=== PATIENT | female | born 1980 | race African-American/Black ===

== ENCOUNTER 2016-09-11 10:39 | Emergency (ER) | payer MEDICARE, MEDICAID ==
--- NOTE | 2016-09-11 10:50 | ER Document Report ---
ED Medical Screen (RME) - General Stated Complaint: ABDOMINAL PAIN Mode of Arrival: Ambulatory Information source: Patient Notes: She presents to the emergency department with complaints of lower abdominal pain that started last night. She reports is not as bad as last night but still hurts. Patient reports some diarrhea this morning felt nausea no vomiting possible fever. Abdomen soft complaints of tenderness to the left lower quadrant. Declines antinausea medication. I have greeted and performed a rapid initial assessment of this patient. A comprehensive ED assessment and evaluation of the patient, analysis of test results and completion of the medical decision making process will be conducted by additional ED providers. - Related Data Allergies/Adverse Reactions: Sulfa (Sulfonamide Antibiotics) Allergy (Verified 09/11/16 10:48)
[2016-09-11 11:18] LABS: HEMATOCRIT 36.6 % (36.0-47.0); HEMOGLOBIN 12.2 g/dL (12.0-15.5); MEAN CORPUSCULAR HEMOGLOBIN 26.6 pg (27.0-33.4); MEAN CORPUSCULAR HGB CONC 33.4 g/dL (32.0-36.0); MEAN CORPUSCULAR VOLUME 80 fl (80-97); RED CELL DISTRIBUTION WIDTH 16.7 % (11.5-14.0); WHITE BLOOD COUNT 7.1 10^3/uL (4.0-10.5)
[2016-09-11 11:23] LABS: APPEARANCE,URINE SLIGHTLY-CLOUDY; BILIRUBIN,URINE NEGATIVE (NEGATIVE); GLUCOSE, URINE NEGATIVE (NEGATIVE); KETONES,URINE NEGATIVE (NEGATIVE); LEUKOCYTE ESTERASE,URINE NEGATIVE (NEGATIVE); NITRITE,URINE NEGATIVE (NEGATIVE); PROTEIN,URINE NEGATIVE (NEGATIVE); URINE SPECIFIC GRAVITY 1.024; UROBILINOGEN,URINE NEGATIVE mg/dL (<2.0)
[2016-09-11 11:36] LABS: ALANINE AMINOTRANSFERASE 27 U/L (9-52); ALBUMIN 4.3 g/dL (3.5-5.0); ALKALINE PHOSPHATASE 55 U/L (38-126); ANION GAP 10 (5-19); ASPARTATE AMINO TRANSFERASE 24 U/L (14-36); BILIRUBIN,TOTAL 0.8 mg/dL (0.2-1.3); BLOOD UREA NITROGEN 14 mg/dL (7-20); CARBON DIOXIDE 26 mmol/L (22-30); CHLORIDE 102 mmol/L (98-107); CREATININE RESULT 0.58 mg/dL (0.52-1.25); GLUCOSE 107 mg/dL (75-110); POTASSIUM 3.9 mmol/L (3.6-5.0); SODIUM 138.4 mmol/L (137-145); TOTAL PROTEIN 7.3 g/dL (6.3-8.2)
[2016-09-11 11:43] LABS: BAND NEUTROPHILS % (MANUAL) 5 % (3-5); BASOPHILS % (MANUAL) 0 % (0-2); EOSINOPHILS % (MANUAL) 1 % (0-6); LYMPHOCYTES % (MANUAL) 6 % (13-45); TOTAL CELLS COUNTED 100
[2016-09-11 11:45] LABS: HYPOCHROMASIA 1+; MICROCYTOSIS SLIGHT; POIKILOCYTOSIS SLIGHT; TARGET CELLS SLIGHT
[2016-09-11] MEDS ORDERED: ONDANSETRON ODT 4 MG TAB (6 TAB/DSPK) PO PRN (12:51)
--- NOTE | 2016-09-11 12:57 | ER Document Report ---
ED General - General Chief Complaint: Abdominal Pain Stated Complaint: ABDOMINAL PAIN Mode of Arrival: Ambulatory TRAVEL OUTSIDE OF THE U.S. IN LAST 30 DAYS: No - HPI Patient complains to provider of: diffuse abdominal pain nausea myalgias Notes: Patient coming in for a diffuse abdominal pain myalgias nausea ongoing for the last 24 hours. Patient states that she did not receive a flu vaccine this year denies any recent travel or sick contacts denies any diarrhea vomiting fevers chills. Patient denies any recent trauma or antibiotic usage. Patient is resting currently upon my evaluation - Related Data Allergies/Adverse Reactions: Sulfa (Sulfonamide Antibiotics) Allergy (Verified 09/11/16 10:48) Past Medical History - General Information source: Patient - Social History Smoking Status: Never Smoker Chew tobacco use (# tins/day): No Frequency of alcohol use: Occasional Drug Abuse: None Family History: Reviewed & Not Pertinent Patient has suicidal ideation: No Patient has homicidal ideation: No Renal/ Medical History: Denies: Hx Peritoneal Dialysis Review of Systems - Review of Systems Constitutional: No symptoms reported EENT: No symptoms reported Cardiovascular: No symptoms reported Respiratory: No symptoms reported Gastrointestinal: Nausea, Vomiting Genitourinary: No symptoms reported Female Genitourinary: No symptoms reported Musculoskeletal: No symptoms reported Skin: No symptoms reported Hematologic/Lymphatic: No symptoms reported Neurological/Psychological: No symptoms reported -: Yes All other systems reviewed and negative Physical Exam - Vital signs Vitals: Temp Pulse Resp BP Pulse Ox 98.8 F 96 16 118/81 95 09/11/16 10:48 09/11/16 10:48 09/11/16 10:48 09/11/16 10:48 09/11/16 10:48 Interpretation: Normal - General General appearance: Appears well, Alert - HEENT Head: Normocephalic, Atraumatic Eyes: Normal Pupils: PERRL - Respiratory Respiratory status: No respiratory distress Chest status: Nontender Breath sounds: Normal Chest palpation: Normal - Cardiovascular Rhythm: Regular Heart sounds: Normal auscultation Murmur: No - Abdominal Inspection: Normal Distension: No distension Bowel sounds: Normal Tenderness: Nontender. No: Tender, McBurney's point, Zuniga's sign, Guarding, Rebound Organomegaly: No organomegaly - Back Back: Normal, Nontender - Extremities General upper extremity: Normal inspection, Nontender, Normal color, Normal ROM , Normal temperature General lower extremity: Normal inspection, Nontender, Normal color, Normal ROM , Normal temperature, Normal weight bearing. No: Tito's sign - Neurological Neuro grossly intact: Yes Cognition: Normal Orientation: AAOx4 [place] Coma Scale Eye Opening: Spontaneous [place] Coma Scale Verbal: Oriented [place] Coma Scale Motor: Obeys Commands [place] Coma Scale Total: 15 Speech: Normal Motor strength normal: LUE, RUE, LLE, RLE Sensory: Normal - Psychological Associated symptoms: Normal affect, Normal mood - Skin Skin Temperature: Warm Skin Moisture: Dry Skin Color: Normal Course - Re-evaluation Re-evalutation: 09/11/16 15:20 : The patient presents with abdominal pain without signs of peritonitis or other life-threatening or serious etiology. The patient appears stable for discharge and has been instructed to return immediately if the symptoms worsen in any way, or in 8-12hr if not improved for re-evaluation. The patient has been instructed to return if the symptoms worsen or change in any way.. - Vital Signs Vital signs: Temp Pulse Resp BP Pulse Ox 99.0 F 79 16 139/89 H 100 09/11/16 13:14 09/11/16 13:14 09/11/16 13:14 09/11/16 13:14 09/11/16 13:14 - Laboratory Result Diagrams: 09/11/16 10:55 09/11/16 10:55 Laboratory results interpreted by me: 09/11/16 10:55 MCH 26.6 L RDW 16.7 H Seg Neuts % (Manual) 86 H Lymphocytes % (Manual) 6 L Monocytes % (Manual) 2 L Abs Lymphs (Manual) 0.4 L Discharge - Discharge Clinical Impression: Nausea, Viral syndrome Abdominal pain Qualifiers: Abdominal location: unspecified location Qualified Code(s): R10.9 - Unspecified abdominal pain Condition: Good Disposition: HOME, SELF-CARE Instructions: Abdominal Pain ([facility]), Antinausea Medication ([facility]), Viral Syndrome ([facility]) Additional Instructions: Take medications as prescribed. Your laboratory evaluation and physical examination is consistent with a viral syndrome. He may experience symptoms for the next 3-6 days. Follow-up with your primary care physician please drink plenty water and fluids to stay hydrated. Please take Tylenol Motrin for your pain and possible fevers Prescriptions: Ondansetron [Zofran Odt 4 mg Tablet] 1 - 2 tab PO Q4H PRN #30 tab.rapdis PRN Reason: For Nausea/Vomiting Promethazine HCl [Phenergan 25 mg Tablet] 1 - 2 tab PO Q6H PRN #30 tablet PRN Reason:
[2016-09-11 13:15] VITALS: BP 139/89
== END 2016-09-11 13:16 | disposition home or self-care (01) ==
LOC: ER 10:39
DX: R11.0 Nausea (principal); B34.9 Viral infection, unspecified; R10.9 Unspecified abdominal pain; M79.1 Myalgia; Z88.2 Allergy status to sulfonamides
CPT/HCPCS: 99284; 36415; 83690; 84703; 85025; 80053; 81001; A9270

== ENCOUNTER 2016-12-20 01:49 | Emergency (ER) | payer MEDICARE, MEDICAID, OTHER | END 2016-12-20 02:10 | disposition left against medical advice (07) | LOC: ER 01:49 | DX: Z53.21 Procedure and treatment not carried out due to patient leaving prior to being seen by health care provider (principal) ==

== ENCOUNTER 2017-01-11 16:50 | Emergency (ER) | payer MEDICARE, OTHER, MEDICAID ==
--- NOTE | 2017-01-11 17:28 | ER Document Report ---
ED General - General Chief Complaint: Psych Problem Stated Complaint: PSYCH EVAL Time Seen by Provider: 01/11/17 17:07 Mode of Arrival: Ambulatory Information source: Patient Notes: 36-year-old female history of depression but has not been on medication for the past year presents with complaints of depression and suicidal ideation. Patient notes she had thoughts of hurting herself 3 days ago but those thoughts have since resolved. Patient denies actual plan to harm herself. TRAVEL OUTSIDE OF THE [place] IN LAST 30 DAYS: No - HPI Onset: Other Onset/Duration: Persistent Quality of pain: No pain Severity: Mild Pain Level: Denies Associated symptoms: Other Exacerbated by: Denies Relieved by: Denies Similar symptoms previously: Yes Recently seen / treated by doctor: Yes - Related Data Allergies/Adverse Reactions: Sulfa (Sulfonamide Antibiotics) Allergy (Verified 01/11/17 17:57) Past Medical History - Social History Smoking Status: Never Smoker Cigarette use (# per day): No Chew tobacco use (# tins/day): No Smoking Education Provided: No Family History: Reviewed & Not Pertinent Patient has suicidal ideation: Yes Patient has homicidal ideation: No Renal/ Medical History: Denies: Hx Peritoneal Dialysis Review of Systems - Review of Systems Notes: REVIEW OF SYSTEMS: CONSTITUTIONAL : Denies fever, chills, or sweats. Denies recent illness. EENT: Denies eye, ear, throat, or mouth pain or symptoms. Denies nasal or sinus congestion or discharge. Denies throat, tongue, or mouth swelling or difficulty swallowing. CARDIOVASCULAR: Denies chest pain. Denies palpitations or racing or irregular heart beat. Denies ankle edema. RESPIRATORY: Denies cough, cold, or chest congestion. Denies shortness of breath, difficulty breathing, or wheezing. GASTROINTESTINAL: Denies abdominal pain or distention. Denies nausea, vomiting , or diarrhea. Denies blood in vomitus, stools, or per rectum. Denies black, tarry stools. Denies constipation. GENITOURINARY: Denies difficulty urinating, painful urination, burning, frequency, blood in urine, or discharge. FEMALE GENITOURINARY: Denies vaginal bleeding, heavy or abnormal periods, irregular periods. Denies vaginal discharge or odor. MUSCULOSKELETAL: Denies back or neck pain or stiffness. Denies joint pain or swelling. SKIN: Denies rash, lesions or sores. HEMATOLOGIC : Denies easy bruising or bleeding. LYMPHATIC: Denies swollen, enlarged glands. NEUROLOGICAL: Denies confusion or altered mental status. Denies passing out or loss of consciousness. Denies dizziness or lightheadedness. Denies headache. Denies weakness or paralysis or loss of use of either side. Denies problems with gait or speech. Denies sensory loss, numbness, or tingling. Denies seizures. PSYCHIATRIC: depression ALL OTHER SYSTEMS REVIEWED AND NEGATIVE. PHYSICAL EXAMINATION: GENERAL: Well-appearing, well-nourished and in no acute distress. HEAD: Atraumatic, normocephalic. EYES: Pupils equal round and reactive to light, extraocular movements intact, conjunctiva are normal. ENT: Nares patent, oropharynx clear without exudates. Moist mucous membranes. NECK: Normal range of motion, supple without lymphadenopathy LUNGS: Breath sounds clear to auscultation bilaterally and equal. No wheezes rales or rhonchi. HEART: Regular rate and rhythm without murmurs ABDOMEN: Soft, nontender, nondistended abdomen. No guarding, no rebound. No masses appreciated. Female : deferred Musculoskeletal: Normal range of motion, no pitting or edema. No cyanosis. NEUROLOGICAL: Cranial nerves grossly intact. Normal speech, normal gait. Normal sensory, motor exams PSYCH: denies suicidal ideation SKIN: Warm, Dry, normal turgor, no rashes or lesions noted. Dictation was performed using [employer] voice recognition software Physical Exam - Vital signs Vitals: Temp Pulse Resp BP Pulse Ox 98.9 F 87 14 143/97 H 100 01/11/17 16:56 01/11/17 16:56 01/11/17 16:56 01/11/17 16:56 01/11/17 16:56 Course - Re-evaluation Re-evalutation: 01/11/17 17:59 Patient at this time has no obvious suicidal ideations, she looks well is in no distress. I will have mental health evaluate the patient and determine plan, patient wishes to have outpatient treatment and I believe this is appropriate After performing a Medical Screening Examination, I estimate there is LOW risk for any life threatening mental health issues. At this time the patient looks extremely well and has not attempted severe self harm. I have reevaluated this patient multiple times and no significant life threatening changes are noted. The patient and I have discussed the diagnosis and risks, and we agree with discharging home with close follow-up with the understanding that symptoms and presentations can change. We also discussed returning to the Emergency Department immediately if new or worsening symptoms occur. We have discussed the symptoms which are most concerning (hallucinations, thoughts or actions of self harm or harm to others) that necessitate immediate return. - Vital Signs Vital signs: Temp Pulse Resp BP Pulse Ox 98.9 F 87 14 143/97 H 100 01/11/17 16:56 01/11/17 16:56 01/11/17 16:56 01/11/17 16:56 01/11/17 16:56 - Diagnostic Test Radiology reviewed: Image reviewed, Reports reviewed - EKG Interpretation by Me EKG shows normal: Sinus rhythm, [place], Intervals, QRS Complexes Discharge - Discharge Clinical Impression: Passive suicidal ideations Depressed Qualifiers: Depression Type: unspecified Qualified Code(s): F32.9 - Major depressive disorder, single episode, unspecified Condition: Fair Disposition: HOME, SELF-CARE Additional Instructions: DEPRESSION: Your evaluation reveals that you have mental depression. While symptoms may be vague, they often include disturbance of sleep, fatigue, loss of appetite , and general loss of interest in life. While depression may be a side effect of drugs, or a reaction to a major change in your life, many cases have no known cause. If depression is acute, and related to a major loss in your life, you can expect it to clear completely with time. If you have been depressed a long time , are prone to repeated bouts of depression or low mood, or have been thinking of suicide, get help. Depression can be treated with anti-depressant medication and counselling. Long-term depression will often take a few weeks to clear, even with appropriate medication. Follow-up care is important. SUICIDAL IDEATION: Suicidal ideation is a common medical term for thoughts about suicide, which may be as detailed as a formulated plan, without the suicidal act itself. Although most people who undergo suicidal ideation do not commit suicide, some go on to make suicide attempts. The range of suicidal ideation varies greatly from fleeting to detailed planning, role playing, and unsuccessful attempts. While thoughts about suicide are common, most people do not carry out serious actions to commit suicide. Based upon your evaluation and discussion with you, we do not believe you are currently at risk to act upon your thoughts of suicide. You have agreed to return to the Emergency Department, at any time , if you feel inclined to act upon your suicidal thoughts. You should follow up with A, [facility], or [facility] as a walk-in first thing tomorrow (01/12/2017) morning. They all open at 0800. Referrals: [facility] [Outside] - Follow up tomorrow [facility] [Outside] - Follow up tomorrow () [facility] [Outside] - Follow up tomorrow
--- NOTE | 2017-01-11 17:58 | ER Document Report ---
ED Psych Disorder / Suicide - General Mode of Arrival: Ambulatory Information source: Patient TRAVEL OUTSIDE OF THE [place] IN LAST 30 DAYS: No - HPI Patient complains to provider of: Suicidal ideation Onset: Other - couple days ago Onset was: Gradual Suicide Risk Factors: Bipolar, Depressed Situational problems related to: Recent divorce, Work Normal mood: No Associated symptoms: Depressed, Tearful - eyes were watery however never cried Similar symptoms previously: Yes Recently seen / treated by doctor: Yes <MELISSA CERNA - Last Filed: 01/11/17 18:08> <SHRAVAN BROWN - Last Filed: 01/14/17 11:09> - General Chief Complaint: Psych Problem Stated Complaint: Suicidal Ideation, Increased Depression Time Seen by Provider: 01/11/17 17:07 - HPI Notes: Patient is a 36 year old female who presented to the ED today for SI, seeking medications, and wanting outpatient resources. She brought herself to the ED. She reported she moved from [place] to [place] about 6 months ago. She noted her family is in [place]. She identified she recently went through a divorce, is residing in the home with her ex- still, there are issues surrounding the children, financial issues, she is not working, and she is trying to obtain other housing. She stated she has [place] Medicaid and disability. She noted she had had outpatient MH services when in [place] but none since moving to [place]. She stated she had previously been prescribed Latuda which was helpful and Seroquel which did not seem effective. She acknowledged previous inpatient hospitalization, the most recent being 9 months to a year ago in [place], where she spent 1-2 weeks. She denied current SI. She admitted to having SI a couple days ago, went to the store, was thinking about what pills she could take , and then thought "that would be stupid to take pills and not ." She stated the best way would be to get a gun. She reported she does not have a gun or have access. She denied previous SI attempts and said "I think I would be successful if I tried." She denied HI. She refused providing a collateral. She stated she would not utilize mobile crisis, however if overwhelmed would come back to the ED. She was unsure about family MH history due to being adopted. Patient was alert and oriented. Mood was depressed with congruent affect AEB watery eyes when talking about her social stresses. She denied current SI/HI, previous attempts, and admitted to SI thoughts a couple days ago. She did not appear to be responding to internal stimuli AEB fair eye contact, answering questions appropriately when addressed, and carrying on dialogue conversation. Thought processes were organized and linear. Conversational speech was soft in tone and WNL for rate and prosody. Intellectual abilities are estimated to be average. Insight, judgment and impulse control are fair AEB coming to the ED to seek guidance and referral information. Diagnosis: V61.03 (Z63.5) Disruption of Family by Divorce 296.80 (F31.9) Unspecified Bipolar and Related Disorder by History Impression/Plan: Recommendation to discharge patient home. She does not meet [place] [address] [address] IVC criteria. She denied current SI/HI, came seeking resources ( shows hope), and there was no observed psychosis. She will be provided with scripts for medication. Provided patient with outpatient resource list with emphasis on A, [facility], and [facility] since they do walk-ins M-F from [phone] (this was documented on the resource list). Encouraged her to go to one first thing tomorrow morning. She agreed to come back to the ED if she was overwhelmed and/or SI returned. Consulted with Dr. Brown regarding the management and care of patient. ED Doctor in agreement with recommendations. (MELISSA CERNA) - Related Data Allergies/Adverse Reactions: Sulfa (Sulfonamide Antibiotics) Allergy (Verified 01/11/17 17:57) Past Medical History - Social History Family History: Reviewed & Not Pertinent Patient has suicidal ideation: Yes Patient has homicidal ideation: No Renal/ Medical History: Denies: Hx Peritoneal Dialysis <MELISSA CERNA - Last Filed: 01/11/17 18:08> - Social History Smoking Status: Unknown if Ever Smoked <SHRAVAN BROWN - Last Filed: 01/14/17 11:09> Discharge <MELISSA CERNA - Last Filed: 01/11/17 18:08> <SHRAVAN BROWN - Last Filed: 01/14/17 11:09> - Discharge Clinical Impression: Passive suicidal ideations, Bipolar disorder Depressed Qualifiers: Depression Type: unspecified Qualified Code(s): F32.9 - Major depressive disorder, single episode, unspecified Condition: Fair Disposition: HOME, SELF-CARE Additional Instructions: DEPRESSION: Your evaluation reveals that you have mental depression. While symptoms may be vague, they often include disturbance of sleep, fatigue, loss of appetite , and general loss of interest in life. While depression may be a side effect of drugs, or a reaction to a major change in your life, many cases have no known cause. If depression is acute, and related to a major loss in your life, you can expect it to clear completely with time. If you have been depressed a long time , are prone to repeated bouts of depression or low mood, or have been thinking of suicide, get help. Depression can be treated with anti-depressant medication and counselling. Long-term depression will often take a few weeks to clear, even with appropriate medication. Follow-up care is important. SUICIDAL IDEATION: Suicidal ideation is a common medical term for thoughts about suicide, which may be as detailed as a formulated plan, without the suicidal act itself. Although most people who undergo suicidal ideation do not commit suicide, some go on to make suicide attempts. The range of suicidal ideation varies greatly from fleeting to detailed planning, role playing, and unsuccessful attempts. While thoughts about suicide are common, most people do not carry out serious actions to commit suicide. Based upon your evaluation and discussion with you, we do not believe you are currently at risk to act upon your thoughts of suicide. You have agreed to return to the Emergency Department, at any time , if you feel inclined to act upon your suicidal thoughts. You should follow up with [facility], [facility], or [facility] as a walk-in first thing tomorrow (01/12/2017) morning. They all open at 0800. Prescriptions: Buspirone HCl [Buspar 10 mg Tablet] 10 mg PO QHS #30 tablet Buspirone HCl [Buspar 5 mg Tablet] 1 tab PO QAM #30 tab Divalproex Sodium [Depakote] 500 mg PO BID #60 tablet. Referrals: [facility] [Outside] - Follow up tomorrow [facility] [Outside] - Follow up tomorrow [facility] [Outside] - Follow up tomorrow ()
[2017-01-11 18:35] VITALS: BP 119/80
== END 2017-01-11 18:35 | disposition home or self-care (01) ==
LOC: ER 16:50
DX: F32.9 Major depressive disorder, single episode, unspecified (principal); R45.851 Suicidal ideations; Z88.2 Allergy status to sulfonamides
CPT/HCPCS: 99285

== ENCOUNTER 2018-03-08 11:47 | Emergency (ER) | payer MEDICARE, MEDICAID ==
[2018-03-08 13:08] LABS: ABSOLUTE BASOPHILS # (AUTO) 0.1 10^3/uL (0.0-0.2); ABSOLUTE LYMPHOCYTES (AUTO) 0.3 10^3/uL (0.5-4.7); ABSOLUTE MONOCYTES (AUTO) 0.1 10^3/uL (0.1-1.4); ABSOLUTE NEUT (AUTO) 4.5 10^3/uL (1.7-8.2); BASOPHILS % (AUTO) 1.1 % (0-2); EOSINOPHILS % (AUTO) 0.1 % (0-6); HEMATOCRIT 38.2 % (36.0-47.0); HEMOGLOBIN 12.7 g/dL (12.0-15.5); LYMPHOCYTES % (AUTO) 6.8 % (13-45); MEAN CORPUSCULAR HEMOGLOBIN 27.7 pg (27.0-33.4); MEAN CORPUSCULAR HGB CONC 33.3 g/dL (32.0-36.0); MEAN CORPUSCULAR VOLUME 83 fl (80-97); PLATELET COUNT 253 10^3/uL (150-450); RED BLOOD COUNT 4.59 10^6/uL (3.72-5.28); RED CELL DISTRIBUTION WIDTH 15.5 % (11.5-14.0); TOTAL CELLS COUNTED % (AUTO) 100 %
[2018-03-08 13:10] LABS: APPEARANCE,URINE SLIGHTLY-CLOUDY; BILIRUBIN,URINE NEGATIVE (NEGATIVE); COLOR,URINE YELLOW; GLUCOSE, URINE NEGATIVE (NEGATIVE); KETONES,URINE NEGATIVE (NEGATIVE); LEUKOCYTE ESTERASE,URINE NEGATIVE (NEGATIVE); NITRITE,URINE NEGATIVE (NEGATIVE); PROTEIN,URINE 30 mg/dL (NEGATIVE); URINE SPECIFIC GRAVITY 1.015; UROBILINOGEN,URINE NEGATIVE mg/dL (<2.0)
[2018-03-08 13:28] LABS: ALANINE AMINOTRANSFERASE 20 U/L (9-52); ALBUMIN 4.8 g/dL (3.5-5.0); ALKALINE PHOSPHATASE 52 U/L (38-126); ANION GAP 12 (5-19); ASPARTATE AMINO TRANSFERASE 38 U/L (14-36); BILIRUBIN,DIRECT 0.3 mg/dL (0.0-0.4); BILIRUBIN,TOTAL 0.5 mg/dL (0.2-1.3); BLOOD UREA NITROGEN 8 mg/dL (7-20); CALCIUM 9.2 mg/dL (8.4-10.2); CARBON DIOXIDE 28 mmol/L (22-30); CHLORIDE 103 mmol/L (98-107); GLUCOSE 123 mg/dL (75-110); POTASSIUM 4.1 mmol/L (3.6-5.0); SODIUM 142.7 mmol/L (137-145); TOTAL PROTEIN 8.3 g/dL (6.3-8.2)
[2018-03-08 13:35] LABS: ACETAMINOPHEN < 10 ug/mL (10-30); ALCOHOL < 10 mg/dL (NONE DETECTED); SALICYLATE < 1.0 mg/dL (2.0-20.0)
[2018-03-08 13:42] LABS: URINE AMPHETAMINES SCREEN NEGATIVE; URINE BARBITURATES SCREEN NEGATIVE; URINE BENZODIAZEPINES SCREEN NEGATIVE; URINE COCAINE SCREEN NEGATIVE; URINE MARIJUANA (THC) SCREEN NEGATIVE; URINE METHADONE SCREEN NEGATIVE; URINE PHENCYCLIDINE SCREEN NEGATIVE
--- NOTE | 2018-03-08 14:01 | EKG REPORT ---
SEVERITY:- ABNORMAL ECG - SINUS RHYTHM ABNORMAL T, CONSIDER ISCHEMIA, ANTERIOR LEADS : Confirmed by: Scott Boothe MD 08-Mar-2018 14:01:05
--- NOTE | 2018-03-08 14:49 | ER Document Report ---
ED General <LEAH HAMMOND - Last Filed: 03/08/18 15:06> - General TRAVEL OUTSIDE OF THE [place] IN LAST 30 DAYS: No - HPI Patient complains to provider of: Suicidal ideation <RODO NATION - Last Filed: 03/08/18 20:38> - General Chief Complaint: Suicidal Ideation Stated Complaint: POSSIBLE IVC Time Seen by Provider: 03/08/18 12:08 - HPI Notes: Patient coming for suicidal ideation states ongoing for approximately a week. Patient denies any plan. Patient states having increased issues with her ex- . Patient states she was on multiple medications in the past currently is on no medication. Patient is resting comfortably denies any other symptoms denies any fevers chills nausea vomiting diarrhea. (RODO NATION) - Related Data Allergies/Adverse Reactions: Sulfa (Sulfonamide Antibiotics) Allergy (Verified 03/08/18 11:47) Past Medical History - Social History Smoking Status: Never Smoker Frequency of alcohol use: None Drug Abuse: None Family History: Reviewed & Not Pertinent Patient has suicidal ideation: Yes Patient has homicidal ideation: No Renal/ Medical History: Denies: Hx Peritoneal Dialysis Psychiatric Medical History: Reports: Hx Bipolar Disorder, Hx Depression Past Surgical History: Reports: Hx Section - x4, Hx Orthopedic Surgery - bunectomcy, Hx Tonsillectomy <RODO NATION - Last Filed: 03/08/18 20:38> Review of Systems - Review of Systems Constitutional: No symptoms reported EENT: No symptoms reported Cardiovascular: No symptoms reported Respiratory: No symptoms reported Gastrointestinal: No symptoms reported Genitourinary: No symptoms reported Female Genitourinary: No symptoms reported Musculoskeletal: No symptoms reported Skin: No symptoms reported Hematologic/Lymphatic: No symptoms reported Neurological/Psychological: Suicidal ideation -: Yes All other systems reviewed and negative <RODO NATION - Last Filed: 03/08/18 20:38> Physical Exam - Vital signs Interpretation: Normal - General General appearance: Appears well, Alert - HEENT Head: Normocephalic, Atraumatic Eyes: Normal Pupils: PERRL - Respiratory Respiratory status: No respiratory distress Chest status: Nontender Breath sounds: Normal Chest palpation: Normal - Cardiovascular Rhythm: Regular Heart sounds: Normal auscultation Murmur: No - Abdominal Inspection: Normal Distension: No distension Bowel sounds: Normal Tenderness: Nontender Organomegaly: No organomegaly - Back Back: Normal, Nontender - Extremities General upper extremity: Normal inspection, Nontender, Normal color, Normal ROM , Normal temperature General lower extremity: Normal inspection, Nontender, Normal color, Normal ROM , Normal temperature, Normal weight bearing. No: Tito's sign - Neurological Neuro grossly intact: Yes Cognition: Normal Orientation: AAOx4 [place] Coma Scale Eye Opening: Spontaneous [place] Coma Scale Verbal: Oriented [place] Coma Scale Motor: Obeys Commands [place] Coma Scale Total: 15 Speech: Normal Motor strength normal: LUE, RUE, LLE, RLE Sensory: Normal - Psychological Associated symptoms: Normal affect, Normal mood - Skin Skin Temperature: Warm Skin Moisture: Dry Skin Color: Normal <RODO NATION - Last Filed: 03/08/18 20:38> - Vital signs Vitals: Temp Pulse Resp BP Pulse Ox 97.4 F 70 14 132/83 H 98 03/08/18 11:51 03/08/18 11:51 03/08/18 11:51 03/08/18 11:51 03/08/18 11:51 Course - Laboratory Result Diagrams: 03/08/18 12:35 03/08/18 12:35 <LEAH HAMMOND - Last Filed: 03/08/18 15:06> - Laboratory Result Diagrams: 03/08/18 12:35 03/08/18 12:35 <RODO NATION - Last Filed: 03/08/18 20:38> - Re-evaluation Re-evalutation: 03/08/18 20:37 Laboratory values not reveal any critical pathology. Patient was evaluated by mental health team. After evaluation recommend discharge home. Patient stating that she would just like to follow-up with outpatient and was given resources. I agree with this plan. Patient will be discharged (RODO NATION ) - Vital Signs Vital signs: Temp Pulse Resp BP Pulse Ox 98.5 F 81 14 136/82 H 100 03/08/18 15:08 03/08/18 15:08 03/08/18 11:51 03/08/18 15:08 03/08/18 15:08 - Laboratory Laboratory results interpreted by me: 03/08/18 03/08/18 03/08/18 12:35 12:35 12:35 RDW 15.5 H Seg Neutrophils % 90.0 H Lymphocytes % 6.8 L Monocytes % 2.0 L Absolute Lymphocytes 0.3 L Glucose 123 H AST 38 H Total Protein 8.3 H Urine Protein 30 H Salicylates < 1.0 L Acetaminophen < 10 L Discharge <LEAH HAMMOND - Last Filed: 03/08/18 15:06> <RODO NATION - Last Filed: 03/08/18 20:38> - Discharge Clinical Impression: Major depressive disorder, recurrent, unspecified Qualifiers: Active/Remission status: remission status unspecified Qualified Code(s): F33.9 - Major depressive disorder, recurrent, unspecified Condition: Stable Disposition: HOME, SELF-CARE Additional Instructions: You have been evaluated by both medical and behavioral health teams and been deemed appropriate for discharge. Please follow-up with an outpatient mental health provider of your choice. You have been provided a local resource list of area providers. DEPRESSION: Your evaluation reveals that you have mental depression. While symptoms may be vague, they often include disturbance of sleep, fatigue, loss of appetite , and general loss of interest in life. While depression may be a side effect of drugs, or a reaction to a major change in your life, many cases have no known cause. If depression is acute, and related to a major loss in your life, you can expect it to clear completely with time. If you have been depressed a long time , are prone to repeated bouts of depression or low mood, or have been thinking of suicide, get help. Depression can be treated with anti-depressant medication and counselling. Long-term depression will often take a few weeks to clear, even with appropriate medication. Follow-up care is important. FOLLOW-UP CARE: If you experience worsening or a significant change in your symptoms, notify the physician immediately or return to the Emergency Department at any time for re-evaluation. Referrals: [facility] [Outside] - Follow up as needed
[2018-03-08 15:09] VITALS: BP 136/82
--- NOTE | 2018-03-15 09:34 | PSYCHOLOGICAL NOTE ---
Psych Note - Psych Note Psych Note: Reason for Consult: suicidal ideation Patient coming for suicidal ideation states ongoing for approximately a week. Patient denies any plan. Patient states having increased issues with her ex- . Clinician was asked to see patient right away, patient is agitated and wanting to leave. Patient disclosed that she has been having difficulties with her ex- and came to [facility] ED to get referrals for continued services. She adamantly denies plan, means or intent with her thoughts of harming herself. She reports they come and go over the last week and denies any history of past harm to herself. She is upset because of hospital protocol of taking and inventorying patient's belongings and having them change manager. She reports the past time she was here, someone came to the front and talked with her and gave her resources not " locked me up." Patient is alert and orientate to person,place time and circumstance. Mood is irritable currently however was euthymic with congruent affect. Patient endorses passive suicidal ideation that comes and goes denies plan,means or intent. patient denies homicidal ideation. delusions are absent and behavior is congruent with an intact reality based presentation ie organized and linear thought processes. Eye contact was well maintained. intellectual abilities appear to be average range. attention and concentration are fair. insight, judgment and impulse control are fair. 311 (F32.9) Unspecified depressive disorder Impression/plan: patient is cleared from acute psychiatric services. patient discloses passive suicidal ideation ie no plans means or intent. patient requested resources for outpatient mental health services; clinician provided list. Dr. Brown was consulted on the care and management of this patient; attending physician is in agreement with recommendations and disposition.
== END 2018-03-08 15:15 | disposition home or self-care (01) ==
LOC: ER 11:47
DX: F33.9 Major depressive disorder, recurrent, unspecified (principal)
CPT/HCPCS: 36415; 80053; 80307; 81001; 85025; 93005; 93010; 99285